=== PATIENT | male | born 1935 | race Caucasian/White ===

== ENCOUNTER → 2016-04-24 | Outpatient (CLI) | payer MEDICARE, OTHER ==
--- NOTE | 2016-04-24 15:29 | Diagnostic Imaging Report ---
Indications: COUGH Technique: PA and lateral chest Findings: Comparison: Chest radiograph 06/30/14; CT thorax 11/30/13 Subcentimeter nodular opacity is now noted in the lateral aspect of the right upper lobe. Portion of left upper lobe focally obscured by pacemaker, new since previous exam, leads entering the left subclavian vein, tips in the regions of right atrium and ventricle, respectively. Linear densities persist in both lung bases. Heart size, pulmonary vasculature remain within normal limits. Aortic arch calcification, thoracic vertebral osteophytes again noted.. IMPRESSION: No evidence of acute cardiopulmonary disease, unchanged Appearance of small nodular density right upper lobe. Neoplasm not excludable. Repeat contrast-enhanced CT scan the thorax recommended for further evaluation. Stable pulmonary bibasal subsegmental atelectasis versus scarring Interval pacemaker placement Other stable chronic changes as described
== END | disposition home or self-care (01) ==
LOC: RAD 14:05
DX: R05 Cough (principal); Z95.0 Presence of cardiac pacemaker
CPT/HCPCS: 71020

== ENCOUNTER → 2016-04-26 | Outpatient (CLI) | payer MEDICARE, OTHER ==
--- NOTE | 2016-04-26 12:16 | Diagnostic Imaging Report ---
Clinical Indication: Abnormal chest sounds, abnormal chest x-ray, cough Technique: Spiral acquisitions obtained through the chest. No IV contrast utilized, physician request. Multiplanar reconstructions generated. Total dose length product 560 mGycm. CTDIvol(s) 16 mGy Comparison: 11/30/2013, as well as chest radiograph 11/03/16 Findings:There is a 7 mm sclerotic opacity within the lateral right third rib which probably accounts for the findings reported on recent chest radiograph. This is also evident in retrospect on the prior 11/30/2013 exam. Faint 3 mm nodular opacities are seen within the right upper lobe on images 13 and 15 of series 4, evident previously and unchanged. A 7 mm groundglass opacity in the inferior right upper lobe on image 25 of series 4 is unchanged. Other faint groundglass opacities in the anterior right upper lobe and right middle lobe are evident previously and unchanged. Multiple irregular opacities are seen posteriorly within the right lower lobe, extending from image 39 image 52. These are not evident previously. Opacities in the left lung apex are unchanged from the previous study. At least 2 groundglass opacities in the left lung apex are unchanged. Superior segment left lower lobe groundglass opacity, tiny subpleural left upper lobe opacity are unchanged. There is a 2 mm nodule the posterior left lower lobe, image 40 of series 4, which was not evident previously. There is also a 4 mm nodule at the posterior base of the left lower lobe, image 45, which does appear to been present previously. There is bronchial wall thickening in the lower lobes bilaterally. There is generalized hyperinflation. No masses, infiltrates, congestion, or effusions. The heart size is normal. No pericardial effusion. There is a new left chest AICD. This is biventricular. No mediastinal or hilar mass or adenopathy. Ascending thoracic aorta is ectatic but not frankly aneurysmal, measuring 4 cm maximal dimension. Included thyroid is unremarkable. No axillary or chest wall mass or adenopathy. The bones are unremarkable other than the osteosclerotic lesion previously described in the right third rib and mild degenerative changes. The esophagus is unremarkable. The included upper abdominal anatomy demonstrates cholecystectomy clips.. Impression: Nodular opacity demonstrated on recent chest radiograph is demonstrated to be a sclerotic focus within the right third rib, unchanged from a prior study of 2-1/2 years earlier Multiple tiny nodules and groundglass opacities bilaterally. Most of these are unchanged from the earlier 2014 exam. However, a few, in particular within the right lower lobe, are new. If there is significant smoking history or other risk factors for lung carcinoma, and short interval followup CT is recommended in 6 months to one year COPD changes, with hyperinflation and bilateral bronchial wall thickening Physical findings as noted, including biventricular AICD, prior cholecystectomy The CT scanner at [facility] is accredited by the [employer] and the scans are performed using protocols designed to limit radiation exposure to as low as reasonably achievable to attain images of sufficient resolution adequate for diagnostic evaluation.
== END | disposition home or self-care (01) ==
LOC: CAT 10:50
DX: R91.8 Other nonspecific abnormal finding of lung field (principal); Z90.49 Acquired absence of other specified parts of digestive tract
CPT/HCPCS: 71250